=== PATIENT | female | born 1960 | race African-American/Black ===

== ENCOUNTER 2017-06-03 09:51 | Outpatient (CLI) | payer OTHER | END 2017-06-03 18:26 | disposition home or self-care (01) | LOC: SMA 09:51 | PROVIDERS: ATTEND Family Medicine | DX: R92.8 Other abnormal and inconclusive findings on diagnostic imaging of breast (principal) | CPT/HCPCS: 76642; G0206 ==

== ENCOUNTER 2020-04-03 21:19 | Inpatient (IN) | payer OTHER ==
[~2020-04-03] VITALS: Ht 170.2 cm; Wt 104.3 kg
[2020-04-03 21:19] VITALS: BP_SYST 174
[2020-04-03 22:13] LABS: BASOPHILS # (AUTO) 0.1 K/uL (0.0-0.2); BASOPHILS % (AUTO) 0.6 % (0.0-2.0); EOSINOPHILS # (AUTO) 0.1 K/uL (0.0-0.4); EOSINOPHILS % (AUTO) 1.4 % (0.0-4.0); HEMATOCRIT 38.7 % (36-48); HEMOGLOBIN 12.6 g/dL (12.0-16.0); LYMPHOCYTES # (AUTO) 2.4 K/uL (1.0-5.5); LYMPHOCYTES % (AUTO) 26.3 % (20.5-51.5); MEAN CORPUSCULAR HEMOGLOBIN 27 pg (27-31); MEAN CORPUSCULAR HGB CONC 33 % (32-36); MEAN CORPUSCULAR VOLUME 84 fL (79.0-98.0); MONOCYTES # (AUTO) 0.9 K/uL (0.0-1.0); MONOCYTES % (AUTO) 9.9 % (1.7-9.3); NEUTROPHILS # (AUTO) 5.7 K/uL (1.8-7.7); NEUTROPHILS % (AUTO) 61.8 % (40.0-70.0); PLATELET COUNT (AUTO) 257 K/uL (130-430); RED BLOOD CELL COUNT(AUTO) 4.61 MIL/uL (4.2-6.2); RED CELL DISTRIBUTION WIDTH 12.9 % (9.0-15.0); WHITE BLOOD COUNT (AUTO) 9.3 K/uL (4.8-10.8)
[2020-04-03 22:30] LABS: ANION GAP 6 (5-15); CHLORIDE 101 mmol/L (98-107); CREATININE 1.41 mg/dL (0.55-1.30); GLUCOSE 154 mg/dL (70-99); SODIUM SERUM 137 mmol/L (136-145); UREA NITROGEN, BLOOD 16 mg/dL (8-21)
[2020-04-03 22:39] LABS: ALANINE AMINOTRANSFERASE 27 U/L (12-78); ALBUMIN 3.5 g/dL (3.4-4.8); ASPARTATE AMINOTRANSFERASE 19 U/L (10-37); TOTAL BILIRUBIN 0.2 mg/dL (0.0-1.0)
[2020-04-03 22:40] LABS: GFR AFRICAN AMERICAN 49 mL/min (>90)
[2020-04-03 22:41] LABS: POTASSIUM 2.9 mmol/L (3.5-5.1)
[2020-04-03] MEDS ORDERED: POTASSIUM CHLORIDE 20 MEQ TAB.PRT.SR PO ONE (22:45)
[2020-04-03 23:45] LABS: BILIRUBIN,URINE NEGATIVE (NEGATIVE); COLOR,URINE YELLOW (YELLOW); GLUCOSE,URINE NEGATIVE (NEGATIVE); KETONES,URINE NEGATIVE (NEGATIVE); LEUKOCYTE ESTERASE ,URINE 3+ (NEGATIVE); NITRITE, URINE NEGATIVE (NEGATIVE); PH,URINE 5.5 (5.0-8.0); PROTEIN URINE NEGATIVE (NEGATIVE); UROBILINOGEN,URINE 0.2 (0.2-1.0)
[2020-04-03 23:46] LABS: BLOOD, URINE TRACE (NEGATIVE); CLARITY/URINE SLIGHTLY HAZY (CLEAR)
[2020-04-03] MEDS ORDERED: BENA1TAB17 PO (23:46)
[2020-04-03] MEDS ORDERED: ATEN-168 PO (23:46)
[2020-04-03] MEDS ORDERED: NOR10 PO (23:46)
[2020-04-03] MEDS ORDERED: GLU500 PO (23:46)
[2020-04-03] MEDS ORDERED: CAT1PAT TD (23:46)
[2020-04-04] LABS: BACTERIA,URINE FEW /HPF (None Seen); WBC,URINE 20-50 /HPF (0-3)
[2020-04-04] MEDS ORDERED: NACL 0.9% 1,000 ML IV ONE (00:18)
[2020-04-04] MEDS ORDERED: MORPHINE 4 MG/ML INJ. SYRINGE IVP ONE (00:30)
[2020-04-04] MEDS ORDERED: ONDANSETRON HCL 4 MG/2 ML VIAL IVP ONE (00:30)
[2020-04-04] MEDS ORDERED: ENOXAPARIN SODIUM 100 MG/ML SYRINGE SUBCUT ONE (01:00)
[2020-04-04] MEDS ORDERED: ACETAMINOPHEN 325 MG TABLET PO PRN (01:15)
[2020-04-04] MEDS ORDERED: ONDANSETRON HCL 4 MG/2 ML VIAL IVP PRN (01:15)
[2020-04-04] MEDS ORDERED: POTASSIUM CHLORIDE 10 MEQ TAB.PRT.SR PO ONE (01:30)
[2020-04-04] MEDS ORDERED: ACETAMINOPHEN 500 MG TABLET PO ONE (01:30)
[2020-04-04] MEDS ORDERED: INSULIN REGULAR, HUMAN 100 UNITS/ML, 10 ML VIAL (humuLIN R) SUBCUT PRN (01:30)
[2020-04-04] MEDS: NACL 0.9% 1,000 ML IV SCH ×2 (02:31→11:55)
[2020-04-04 06:43] LABS: BASOPHILS % (AUTO) 0.6 % (0.0-2.0); EOSINOPHILS % (AUTO) 0.4 % (0.0-4.0); HEMATOCRIT 38.4 % (36-48); HEMOGLOBIN 12.6 g/dL (12.0-16.0); LYMPHOCYTES # (AUTO) 2.6 K/uL (1.0-5.5); LYMPHOCYTES % (AUTO) 33.9 % (20.5-51.5); MEAN CORPUSCULAR HEMOGLOBIN 28 pg (27-31); MEAN CORPUSCULAR HGB CONC 33 % (32-36); MEAN CORPUSCULAR VOLUME 84 fL (79.0-98.0); MONOCYTES # (AUTO) 0.7 K/uL (0.0-1.0); MONOCYTES % (AUTO) 8.7 % (1.7-9.3); NEUTROPHILS # (AUTO) 4.4 K/uL (1.8-7.7); NEUTROPHILS % (AUTO) 56.4 % (40.0-70.0); PLATELET COUNT (AUTO) 242 K/uL (130-430); RED BLOOD CELL COUNT(AUTO) 4.57 MIL/uL (4.2-6.2); RED CELL DISTRIBUTION WIDTH 12.5 % (9.0-15.0); WHITE BLOOD COUNT (AUTO) 7.7 K/uL (4.8-10.8)
[2020-04-04 07:43] LABS: ALANINE AMINOTRANSFERASE 26 U/L (12-78); ALBUMIN 3.3 g/dL (3.4-4.8); ANION GAP 6 (5-15); ASPARTATE AMINOTRANSFERASE 24 U/L (10-37); CALCIUM 9.2 mg/dL (8.4-11.0); CHLORIDE 104 mmol/L (98-107); CREATININE 1.11 mg/dL (0.55-1.30); GLUCOSE 114 mg/dL (70-99); POTASSIUM 3.7 mmol/L (3.5-5.1); SODIUM SERUM 139 mmol/L (136-145); TOTAL BILIRUBIN 0.3 mg/dL (0.0-1.0); UREA NITROGEN, BLOOD 14 mg/dL (8-21)
[2020-04-04 07:45] LABS: GFR AFRICAN AMERICAN 65 mL/min (>90)
[2020-04-04 08:12] LABS: CHOLESTEROL 248 mg/dL (<200); HDL CHOLESTEROL 46 mg/dL (>55); LDL CHOLESTEROL 155 mg/dL (<100); TRIGLYCERIDES 161 mg/dL (30-150)
[2020-04-04 09:00] VITALS: BP_SYST 153
[2020-04-04] MEDS: ATENOLOL 50 MG TABLET (TENORMIN) PO SCH (10:00)
[2020-04-04] MEDS: amLODIPine BESYLATE 10 MG TABLET PO SCH (10:00)
[2020-04-04 11:56] VITALS: BP_SYST 163
[2020-04-04] MEDS: hydrALAZINE HCL 25 MG TABLET PO PRN (12:19)
[2020-04-04] MEDS: ENOXAPARIN SODIUM 100 MG/ML SYRINGE SUBCUT SCH (12:43)
[2020-04-04] MEDS ORDERED: TEMAZEPAM 15 MG CAPSULE PO PRN (14:30)
[2020-04-04] MEDS ORDERED: LEVOFLOXACIN 500 MG/D5W 100 ML IV SCH (15:00)
[2020-04-04 16:00] VITALS: BP_SYST 136
[2020-04-04 20:00] VITALS: BP_SYST 131
[2020-04-05] VITALS (7 sets, daily range): BP systolic 136–163
[2020-04-05] MEDS: ENOXAPARIN SODIUM 100 MG/ML SYRINGE SUBCUT SCH ×2 (00:16→12:40)
[2020-04-05] MEDS: amLODIPine BESYLATE 10 MG TABLET PO SCH (08:13)
[2020-04-05] MEDS: ATENOLOL 50 MG TABLET (TENORMIN) PO SCH (08:14)
[2020-04-05] MEDS: ASCORBIC ACID 500 MG TABLET PO SCH (13:05)
[2020-04-05] MEDS: hydrALAZINE HCL 25 MG TABLET PO PRN (13:06)
[2020-04-05] MEDS: DOXYCYCLINE HYCLATE 100 MG in D5W 100 ML IV SCH (20:38)
[2020-04-06] MEDS: ENOXAPARIN SODIUM 100 MG/ML SYRINGE SUBCUT SCH ×2 (00:30→13:41)
[2020-04-06 07:50] VITALS: BP_SYST 147
[2020-04-06] MEDS: ATENOLOL 50 MG TABLET (TENORMIN) PO SCH (09:09)
[2020-04-06] MEDS: ASCORBIC ACID 500 MG TABLET PO SCH (09:09)
[2020-04-06] MEDS: amLODIPine BESYLATE 10 MG TABLET PO SCH (09:09)
[2020-04-06] MEDS: DOXYCYCLINE HYCLATE 100 MG in D5W 100 ML IV SCH ×2 (09:09→21:33)
[2020-04-06] MEDS ORDERED: IOHEXOL 350 mgI/mL, 150 ML INFUS..BTL IV ONE (09:37)
[2020-04-06 12:00] VITALS: BP_SYST 148
[2020-04-06 16:00] VITALS: BP_SYST 138
[2020-04-06 20:00] VITALS: BP_SYST 143
[2020-04-07] VITALS: BP_SYST 126
[2020-04-07] MEDS: ENOXAPARIN SODIUM 100 MG/ML SYRINGE SUBCUT SCH (00:01)
[2020-04-07 08:06] VITALS: BP_SYST 144
[2020-04-07] MEDS: ATENOLOL 50 MG TABLET (TENORMIN) PO SCH (08:29)
[2020-04-07] MEDS: ASCORBIC ACID 500 MG TABLET PO SCH (08:30)
[2020-04-07] MEDS: amLODIPine BESYLATE 10 MG TABLET PO SCH (08:30)
[2020-04-07] MEDS: DOXYCYCLINE HYCLATE 100 MG in D5W 100 ML IV SCH (08:30)
[2020-04-07 11:14] VITALS: BP_SYST 159
[2020-04-07 12:00] VITALS: BP_SYST 150
== END 2020-04-07 12:40 | disposition home or self-care (01) | DRG 205 ==
LOC: SED 21:19 → STU 23:46 → EEVIPCON 23:46 → STU 04-04 08:10
PROVIDERS: ADMIT Internal Medicine Hospice and Palliative Medicine; ATTEND Internal Medicine Hospice and Palliative Medicine
DX: M94.0 Chondrocostal junction syndrome [Tietze] (principal); N17.0 Acute kidney failure with tubular necrosis; N39.0 Urinary tract infection, site not specified; I10 Essential (primary) hypertension; E11.9 Type 2 diabetes mellitus without complications; E87.6 Hypokalemia; N28.9 Disorder of kidney and ureter, unspecified; E78.5 Hyperlipidemia, unspecified; Z20.828 Contact with and (suspected) exposure to other viral communicable diseases; Z88.6 Allergy status to analgesic agent; Z88.5 Allergy status to narcotic agent; Z88.0 Allergy status to penicillin; Z79.899 Other long term (current) drug therapy; Z83.3 Family history of diabetes mellitus
CPT/HCPCS: 36415; 71045; 71275; 80053; 80061; 81000-TC; 82550-TC; 82728; 82962; 83880; 84484; 85025; 85379; 85651-TC; 86140; 86710; 87086; 93005; 93306; 93970; 96360; 96361; 96372; 99285; G0378; J1650; J1815; J1956; J3490; J7060; Q9967; U0003-CS